=== PATIENT | male | born 1965 | race Caucasian/White ===

== ENCOUNTER 2024-05-15 22:53 | Emergency (ER) | payer OTHER ==
[~2024-05-15] VITALS: Ht 167.6 cm; Wt 91.0 kg
[2024-05-15 23:30] VITALS: O2SAT 98
[2024-05-16 00:26] LABS: BASOPHILS % 0.6 % (0.0-2.0); EOSINOPHILS % 1.1 % (0.0-5.0); HEMATOCRIT. 44.1 % (42.0-52.0); LYMPHOCYTES % 22.2 % (20.0-50.0); MEAN CORPUSCULAR HEMOGLOBIN 28.8 pg (28.0-32.0); MEAN CORPUSCULAR VOLUME 84.9 fL (80.0-94.0); MEAN PLATELET VOLUME 7.7 fl (7.4-10.4); MONOCYTES % 8.9 % (2.0-8.0); NEUTROPHILS % 67.2 % (40.0-76.0); PLATELET 261 x1000/uL (130-400); RED BLOOD CELL COUNT 5.19 mill/uL (4.7-6.1); RED CELL DISTRIBUTION WIDTH 14.8 % (11.6-14.6); WHITE BLOOD COUNT 8.9 x1000/uL (4.5-11.0)
[2024-05-16 00:36] LABS: CHLORIDE 105 mEq/L (98-107); POTASSIUM 3.8 mEq/L (3.5-5.1); SODIUM 138 mEq/L (136-145)
[2024-05-16 00:37] LABS: CARBON DIOXIDE 25 mEq/L (21-32)
[2024-05-16 00:38] LABS: CALCIUM 9.5 mg/dL (8.7-10.4)
[2024-05-16 00:42] LABS: CREATININE 0.7 mg/dL (0.6-1.3); GLUCOSE 101 mg/dL (70-105)
[2024-05-16 00:43] LABS: UREA NITROGEN BLOOD 9 mg/dL (9-23)
[2024-05-16 00:44] LABS: ALANINE AMINOTRANSFERASE 44 IU/L (10-49); ALBUMIN 4.5 g/dL (3.2-4.8); ASPARTATE AMINOTRANSFERASE 29 IU/L (<34)
[2024-05-16 00:45] LABS: BILIRUBIN TOTAL 0.6 mg/dL (0.1-1.0)
[2024-05-16 01:55] VITALS: BP 131/76; PULSE 94; RESP 18; TEMP 36.7; O2SAT 98
[2024-05-16] MEDS ORDERED: SULF1TAB48 MT (11:52)
== END 2024-05-16 02:18 | disposition home or self-care (01) ==
LOC: ER 05-16 00:52
DX: M79.604 Pain in right leg (principal); R60.0 Localized edema
CPT/HCPCS: 36415; 80053; 85025; 93970; 99284